=== PATIENT | male | born 1980 | race Caucasian/White ===

== ENCOUNTER 2023-01-04 22:00 | Emergency (ER) | payer MEDICAID, SELFPAY ==
[2023-01-04 22:00] VITALS: BP 140/86; PULSE 94; RESP 14; TEMP 36.8; O2SAT 99; BMI 22.8
--- NOTE | 2023-01-04 22:10 | [facility].EDMCLR ---
Discharge Plan Disposition Chief Complaint: Medical Clearance Referrals Follow up/Referrals: Provider,Referral, MD [Primary Care Provider] - See instructions Clinical Impressions Clinical Impression: Medical clearance for incarceration Discharge ED Provider: Lisa SAMANIEGO)Jamin Medical Clearance HPI General Chief complaint: Medical Clearance Stated complaint: medical clearance Time Seen by Provider: 01/04/23 22:10 Mode of Arrival: Ambulatory Source of Information: Patient, Law Enforcement and Medical Record Limitations: No Limitations Description of Symptoms (Recalled from ER Triage Doc. by RN): pt here for medical clearance. pt has no c/o History of Present Illness HPI Narrative: pt with no specific c/o MD complaint: medical clearance requested Traumatic Symptoms: denies traumatic injury Associated Symptoms: denies other symptoms Treatments Prior to Arrival: none [facility] Disclaimer: The information contained in this section may have been updated after the patient was seen, as this information can be updated by other users. Social History Smoking Status: Current every day smoker alcohol intake: current current occupational status: employed Travel in the last 8 weeks: None ROS Obtained: Yes All systems reviewed & no additional complaints except as documented Physical Exam General General appearance: alert Head Head exam: normocephalic Eye Eye exam: Present PERRL and EOMI; Absent scleral icterus ENT ENT exam: Present mucous membranes moist Neck Neck exam: Present trachea midline Respiratory Respiratory exam: Present normal lung sounds bilaterally; Absent respiratory distress Cardiovascular Cardiovascular exam: Present regular rate Abdominal Exam Abdominal exam: Present soft Extremities Exam Extremities exam: Present full ROM Neurological Exam Neurological exam: Present alert and CN II-XII intact; Absent motor sensory deficit Skin Skin exam: Absent rash Medical Decision Making Medical Records Medical records reviewed: Yes I reviewed the patient's medical records. Emmanuel Inquiry Pt receiving controlled substance: No Vital Signs: 01/04/23 22:00 Temperature 98.2 F Temperature Source Oral Pulse Rate [Right] 94 H Respiratory Rate 14 Blood Pressure [Right Arm] 140/86 Blood Pressure Mean [Right Arm] 104 02 Sat by Pulse Oximetry 99 Lab Data Lab results reviewed: Yes I reviewed the patient's lab results. Medical Decision Narrative: pt has stable exam and d/c with police Critical Care Time Critical Care Time Critical Care Time: No Attestation: On 01/04/23, the high probability of a clinically significant, sudden or life threatening deterioration of the following system(s) required my full and direct attention, intervention and personal management. The time I documented below is in addition to time spent performing reported procedures but includes the following listed in this critical care notation.
[2023-01-04 22:11] VITALS: BP 140/86; PULSE 94; RESP 14; TEMP 36.8; O2SAT 99
== END 2023-01-04 22:15 ==
LOC: ER 22:06
PROVIDERS: Emergency Provider Emergency Medicine
DX: Z02.79 Encounter for issue of other medical certificate (principal); F17.200 Nicotine dependence, unspecified, uncomplicated
CPT/HCPCS: 99281; 99282